=== PATIENT | male | born 1965 ===

== ENCOUNTER 2018-12-07 08:10 | Emergency (ER) | payer OTHER, MEDICAID, SELFPAY ==
[2018-12-07 08:30] VITALS: BP 143/64; PULSE 70; RESP 17; TEMP 36.3; O2SAT 100
--- NOTE | 2018-12-07 08:56 | PC.NURSE ---
Pt. assisted out of car, arrives to department but refuses to enter room until he uses the restroom to have a BM. Upon arrival to room RT does EKG and pt on monitor showing VS WNL and not ectopy on the monitor. Dialysis access in L arm leaves R arm for blood draw/IV. First attempt at IV - got a green and purple tube but no others before IV blew. No second IV attempted. This RN requests another to attempt. Pt. remains feeling weak but answering questions appropriately. Denies any pain just some minor tingling in extremeties consistent with his potassium concerns.
--- NOTE | 2018-12-07 09:09 | DI.RAD.S_ITS ---
PROCEDURE: XR CHEST 1V INDICATIONS: weakness chest pain TECHNIQUE: One view of the chest was acquired. COMPARISON: None. FINDINGS: Surgical changes and devices: Median sternotomy. Lungs and pleura: Lungs are clear. No pleural effusions or pneumothorax. Mediastinum: Mediastinal contours appear normal. Heart size is enlarged. Bones and chest wall: No suspicious bony lesions. Overlying soft tissues appear unremarkable. IMPRESSION: No acute process. Dictated by: Neno Magana M.D. on 12/07/2018 at 9:57 Approved by: Neno Magana M.D. on 12/07/2018 at 9:57
[2018-12-07 09:19] LABS: Add Manual Diff / Slide Review NO; Basophils Absolute Auto 0 /uL (0-100); Basophils Percent Auto 0.3 % (0-2); Eosinophils Absolute Auto 500 /uL (0-450); Eosinophils Percent Auto 4.2 % (2-4); Hematocrit 37.8 % (41-53); Hemoglobin 12.6 g/dL (13.5-17.5); Lymphocytes Absolute Auto 1600 /uL (1100-4500); Lymphocytes Percent Auto 12.5 % (25-40); Mean Corpuscular HGB Conc 33.4 % (30-36); Mean Corpuscular Hemoglobin 32.6 PG (26-34); Mean Corpuscular Volume 97.7 fL (80-100); Monocytes Absolute Auto 900 /uL (0-900); Monocytes Percent Auto 7.1 % (3-14); Neutrophils Absolute Auto 9900 /uL (1500-7000); Neutrophils Percent Auto 75.9 % (50-75); Platelet Count 295 X10^3/uL (150-400); Red Blood Cell Count 3.87 X10^6/uL (4.5-5.9); Red Cell Distribution Width 13.8 % (11.6-14.8)
[2018-12-07 09:25] LABS: Alanine Aminotransferase 22 IU/L (21-72); Albumin 5.2 g/dL (3.5-5.0); Albumin Globulin Ratio 1.4 (1.0-2.8); Alkaline Phosphatase 103 U/L (38-126); Aspartate Aminotransferase 38 IU/L (17-59); Bilirubin Total 0.8 mg/dL (0.2-1.3); Blood Urea Nitrogen 71 mg/dL (9-20); Calcium 8.9 mg/dL (8.4-10.2); Carbon Dioxide 25 mmol/L (22-32); Chloride 87 mmol/L (98-107); Creatine Kinase 380 U/L (55-170); Globulin 3.8 g/dL (1.7-4.1); Glucose 164 mg/dL (70-100); HEMOLYSIS < 15 (0-50); Lipase 751 U/L (23-300); Sodium 133 mmol/L (137-145)
[2018-12-07 09:36] LABS: Troponin I 0.028 ng/mL (0.01-0.034)
[2018-12-07 09:40] LABS: BUN Creatinine Ratio 5.7 (6-22); CKMB % Relative Index 1.1 % (1.5-5.0); Creatine Kinase MB 4.35 ng/mL (<2.37); Estimated Glomerular Filt Rate 4.2 mL/min (>60)
--- NOTE | 2018-12-07 09:44 | ED.GENADULT ---
HPI - General Adult General Chief complaint: Diabetic Problem Stated complaint: Hard time walking,Diabetic Time Seen by Provider: 12/07/18 09:09 Source: patient Mode of arrival: ambulatory Limitations: no limitations History of Present Illness HPI narrative: Patient is a 53-year-old male on dialysis presenting with overall weakness in all of his extremities. He has not missed dialysis in fact he went 2 days ago on Saturday when he was supposed to and then came to go [facility]. He admits to drinking beer last night but woke up this morning feeling generally weak and lightheaded all over. States that his legs and arms are heavy. He typically gets the symptoms when his potassium is high. He has no chest pain. but does have a history of CABG. She denies any shortness of breath. He overall was feeling well yesterday. Onset (ago): hour(s) Severity: moderate Related Data Home Medications Medication Instructions Recorded Confirmed ALPRAZOLAM 0 PO *UK DOSE/FREQUENCY #0 05/03/06 INSULIN GLARGINE 10ML (LANTUS) 0 SQ * UK DOSE/FREQUENCY #0 05/03/06 INSULIN HUMAN LISPRO 10ML (HUMALOG) 0 SQ * UK DOSE/FREQUENCY #0 05/03/06 Citalopram Hydrobromide 20 mg PO Q DAY #0 05/24/06 (Citalopram HBr) DICLOFENAC SODIUM (Diclofenac 75 mg PO BID #0 05/24/06 Sodium) GABAPENTIN (Neurontin) 300 mg PO #0 05/24/06 Trazodone Hydrochloride (Trazodone 50 mg PO Q HS #0 05/24/06 HCl) Allergies Allergy/AdvReac Type Severity Reaction Status Date / Time No Known Drug Allergies Allergy Verified 12/07/18 12:28 Review of Systems Review of Systems ROS Unobtainable: All systems reviewed & are unremarkable except as noted in HPI and below Constitutional Denies chills, Denies fever(s), Denies lethargy and Reports weakness Cardiovascular Denies chest pain, Denies irregular heart rhythm, Denies lightheadedness, Denies palpitations, Denies dyspnea, Denies dyspnea on exertion and Denies orthopnea Respiratory Denies cough, Denies dyspnea, Denies dyspnea on exertion and Denies wheezing Gastrointestinal Gastrointestinal: Denies abdominal pain, Denies change in bowel habits, Denies diarrhea, Denies nausea and Denies vomiting Musculoskeletal Reports as per HPI, Denies deformity and Denies tingling Integumentary/Breasts Denies pruritus, Denies erythema, Denies rash and Denies wounds Neurologic Denies lack of coordination, Denies tingling and Reports weakness Endocrine Denies palpitations Allergic/Immunologic Denies wheezing [facility] Medical History Coronary artery disease (Acute) End stage renal disease (Acute) Insulin dependent diabetes mellitus (Acute) Surgical History S/P CABG x 3 (Acute) Social History Smoking Status: Current some day smoker Social History Smoking Status: Current some day smoker Exam Initial Vital Signs Initial Vital Signs: Vital Signs Temperature 97.4 F L 12/07/18 08:30 Pulse Rate 70 12/07/18 08:30 Respiratory Rate 17 12/07/18 08:30 Blood Pressure 143/64 H 12/07/18 08:30 Pulse Oximetry 100 12/07/18 08:30 GENERAL: Alert week male appears older than stated age and in no acute distress. HEENT: Head atraumatic,EOMI, pupils reactive, face symmetric CARDIOVASCULAR: Regular rate and rhythm without murmurs, rubs or gallops. RESPIRATORY: Breath sounds equal bilaterally, no wheezes rales or rhonchi. ABDOMEN: Soft, nontender. Normoactive bowel sounds all 4 quadrants. No guarding or rebound. : No CVA tenderness EXTREMITIES: Normal range of motion, no clubbing or edema. Neurovascularly intact NEUROLOGICAL: Alert and oriented x4.Normal gait and speech. Cranial nerves II through XII grossly intact. strategic business development strength equal bilaterally able to push in full equally SKIN: Warm, dry, no laceration, no petechiae, no rashes or lesions. Course Orders Ordered: ED Orders 12/07/18 08:54 Complete Blood Count AUTO DIFF Stat Comprehensive Metabolic Panel Stat Lipase Stat Troponin & CK Cardiac Panel Stat 12/07/18 09:09 XR chest 1V Stat 12/07/18 09:13 Blood Culture Stat 12/07/18 11:53 Potassium Stat 12/07/18 14:08 Potassium Stat Discontinued Medications Dextrose (D50w) 25 gm IV NOW ONE Stop: 12/07/18 09:47 Last Admin: 12/07/18 10:16 Dose: 25 gm Furosemide (Lasix) 40 mg IV NOW ONE Stop: 12/07/18 09:45 Last Admin: 12/07/18 10:16 Dose: 40 mg Calcium Gluconate 4.65 meq/ (Sodium Chloride) 60 mls @ 120 mls/hr IV NOW ONE Stop: 12/07/18 09:45 Last Infusion: 12/07/18 11:04 Dose: 120 mls/hr Admin: 12/07/18 10:24 Dose: 120 mls/hr Sodium Chloride (Normal Saline 0.9%) 500 mls @ 1,000 mls/hr IV BOLUS ONE Stop: 12/07/18 12:12 Last Infusion: 12/07/18 12:54 Dose: 0 mls/hr Admin: 12/07/18 12:26 Dose: 1,000 mls/hr Dextrose (D10w) 250 mls @ 25 mls/hr IV CONT YOU Last Infusion: 12/07/18 15:00 Dose: 0 mls/hr Infusion: 12/07/18 14:59 Dose: 25 mls/hr Admin: 12/07/18 14:48 Dose: 25 mls/hr Insulin Human Regular (Humulin R) 10 unit IV NOW ONE Stop: 12/07/18 09:45 Last Admin: 12/07/18 10:13 Dose: 10 unit Insulin Human Regular (Humulin R) 10 unit IV NOW ONE Stop: 12/07/18 14:37 Last Admin: 12/07/18 14:44 Dose: 10 unit Sodium Polystyrene Sulfonate (Kayexalate) 30 gm PO NOW ONE Stop: 12/07/18 09:45 Last Admin: 12/07/18 10:21 Dose: 30 gm Vital Signs - 8 hr 12/07/18 11:00 12/07/18 12:30 12/07/18 13:00 Pulse Rate 79 96 H 88 Respiratory Rate 17 18 27 H Blood Pressure [Right Arm] 119/74 150/74 H 148/61 H Pulse Oximetry 100 100 100 12/07/18 14:19 Pulse Rate 87 Respiratory Rate 17 Blood Pressure [Right Arm] 136/66 Pulse Oximetry 100 Medical Decision Making Lab Data Lab results reviewed: Yes I reviewed the patient's lab results. Result diagrams: 12/07/18 08:54 04/28/19 14:08 Lab Results 12/07/18 12/07/18 12/07/18 Range/Units 08:54 08:54 11:53 WBC 13.0 H (4.5-11.0) X10^3/uL RBC 3.87 L (4.5-5.9) X10^6/uL Hgb 12.6 L (13.5-17.5) g/dL Hct 37.8 L (41-53) % MCV 97.7 (80-100) fL MCH 32.6 (26-34) PG MCHC 33.4 (30-36) % RDW 13.8 (11.6-14.8) % Plt Count 295 (150-400) X10^3/uL Neut % (Auto) 75.9 H (50-75) % Lymph % (Auto) 12.5 L (25-40) % [place] % (Auto) 7.1 (3-14) % Eos % (Auto) 4.2 H (2-4) % Baso % (Auto) 0.3 (0-2) % Neut # (Auto) 9900 H (7705-3270) /uL Lymph # (Auto) 1600 (5046-2899) /uL [place] # (Auto) 900 (0-900) /uL Eos # (Auto) 500 H (0-450) /uL Baso # (Auto) 0 (0-100) /uL Sodium 133 L (137-145) mmol/L Potassium 7.4 H* 5.3 H D (3.4-5.1) mmol/L Chloride 87 L (98-107) mmol/L Carbon Dioxide 25 (22-32) mmol/L BUN 71 H (9-20) mg/dL Creatinine 12.50 H* (0.66-1.25) mg/dL Estimated GFR 4.2 L (>60) mL/min BUN/Creatinine Ratio 5.7 L (6-22) Glucose 164 H (70-100) mg/dL Calcium 8.9 (8.4-10.2) mg/dL Total Bilirubin 0.8 (0.2-1.3) mg/dL AST 38 (17-59) IU/L ALT 22 (21-72) IU/L Alkaline Phosphatase 103 (38-126) U/L Total Creatine Kinase 380 H (55-170) U/L CK-MB (CK-2) 4.35 H (<2.37) ng/mL CK-MB (CK-2) Rel Index 1.1 L (1.5-5.0) % Troponin I 0.028 (0.01-0.034) ng/mL Total Protein 9.0 H (6.3-8.2) g/dL Albumin 5.2 H (3.5-5.0) g/dL Globulin 3.8 (1.7-4.1) g/dL Albumin/Globulin Ratio 1.4 (1.0-2.8) Lipase 751 H (23-300) U/L 12/07/18 Range/Units 14:08 WBC (4.5-11.0) X10^3/uL RBC (4.5-5.9) X10^6/uL Hgb (13.5-17.5) g/dL Hct (41-53) % MCV (80-100) fL MCH (26-34) PG MCHC (30-36) % RDW (11.6-14.8) % Plt Count (150-400) X10^3/uL Neut % (Auto) (50-75) % Lymph % (Auto) (25-40) % [place] % (Auto) (3-14) % Eos % (Auto) (2-4) % Baso % (Auto) (0-2) % Neut # (Auto) (5316-4248) /uL Lymph # (Auto) (9275-7024) /uL [place] # (Auto) (0-900) /uL Eos # (Auto) (0-450) /uL Baso # (Auto) (0-100) /uL Sodium (137-145) mmol/L Potassium 6.1 H (3.4-5.1) mmol/L Chloride (98-107) mmol/L Carbon Dioxide (22-32) mmol/L BUN (9-20) mg/dL Creatinine (0.66-1.25) mg/dL Estimated GFR (>60) mL/min BUN/Creatinine Ratio (6-22) Glucose (70-100) mg/dL Calcium (8.4-10.2) mg/dL Total Bilirubin (0.2-1.3) mg/dL AST (17-59) IU/L ALT (21-72) IU/L Alkaline Phosphatase (38-126) U/L Total Creatine Kinase (55-170) U/L CK-MB (CK-2) (<2.37) ng/mL CK-MB (CK-2) Rel Index (1.5-5.0) % Troponin I (0.01-0.034) ng/mL Total Protein (6.3-8.2) g/dL Albumin (3.5-5.0) g/dL Globulin (1.7-4.1) g/dL Albumin/Globulin Ratio (1.0-2.8) Lipase (23-300) U/L Point of Care Testing Glucose POC 255 Point of care testing: Point of Care Testing Glucose POC 255 Imaging Data Chest x-ray: Radiologist's impression: PROCEDURE: XR CHEST 1V INDICATIONS: weakness chest pain TECHNIQUE: One view of the chest was acquired. COMPARISON: None. FINDINGS: Surgical changes and devices: Median sternotomy. Lungs and pleura: Lungs are clear. No pleural effusions or pneumothorax. Mediastinum: Mediastinal contours appear normal. Heart size is enlarged. Bones and chest wall: No suspicious bony lesions. Overlying soft tissues appear unremarkable. IMPRESSION: No acute process. Dictated by: Neno Magana M.D. on 12/07/2018 at 9:57 ECG Data Attestation: I personally reviewed and interpreted this ECG as follows: Prior ECG tracings: not available for review Interpretation: Normal sinus rhythm rate 64 P are interval 197 no peaked T-waves no ST changes MDM Narrative Medical decision making narrative: Patient found to be significantly hyperkalemic. He was given insulin, dextrose, Lasix and Kayexalate along with calcium gluconate. He had multiple bowel movements repeat potassium 5.3. I spoken with [facility] physician who agrees with transport back to [place]. His glucose actually dropped into the 50s after the IV insulin. He was able to eat repeat remains stable. he still does not feel right. He overall feels weak and tired not feeling back to his normal. [facility] has found and accepting hospitalist and spoken to the time clerk. They request 1 more repeat potassium prior to transport. The patient agreeable to be transported. The patient is 3rd potassium was rising again at 6.1. He was given 10 units of insulin IV and placed on 10% dextrose drip for transport. Critical Care Time Critical Care Time: Yes Total Critical Care Time: 60 Attestation: The high probability of a clinically significant, sudden or life threatening deterioration of the [cardiovascular] system(s) required my full and direct attention, intervention and personal management. The aggregate critical care time was 60 minutes. This time is in addition to time spent performing reported procedures but includes the following: [x] Data Review and interpretation [x] Patient assessment and monitoring of vital signs [x] Documentation [x] Medication orders and management Discharge Plan Departure Patient Disposition: [facility] Clinical Impression: Acute hyperkalemia Discharge Date/Time: 12/07/18 15:00 Interventions: ED Discharge Assessment Last Done: 12/07/18 16:58 Prescriptions: No Action ALPRAZOLAM PO *UK DOSE/FREQUENCY Qty: 0 RF: 0 INSULIN GLARGINE 10ML (LANTUS) SQ * UK DOSE/FREQUENCY Qty: 0 RF: 0 INSULIN HUMAN LISPRO 10ML (HUMALOG) SQ * UK DOSE/FREQUENCY Qty: 0 RF: 0 DICLOFENAC SODIUM (Diclofenac Sodium) 75 mg PO BID Qty: 0 RF: 0 Citalopram Hydrobromide (Citalopram HBr) 20 mg PO Q DAY Qty: 0 RF: 0 GABAPENTIN (Neurontin) 300 mg PO Qty: 0 RF: 0 Trazodone Hydrochloride (Trazodone HCl) 50 mg PO Q HS Qty: 0 RF: 0
[2018-12-07 09:45] LABS: Potassium 7.4 mmol/L (3.4-5.1)
[2018-12-07] MEDS: INSULIN REGULAR 100 UNIT/ML 3 ML VIAL 10 UNIT IV ×2 (10:13→14:44)
[2018-12-07] MEDS: DEXTROSE 50 % IN WATER 25 GM/50 ML SYRINGE IV (10:16)
[2018-12-07] MEDS: FUROSEMIDE 40 MG/4 ML VIAL IV (10:16)
[2018-12-07] MEDS: SODIUM POLYSTYRENE SULFON/SORB 15 GM/60 ML CUP 30 GM PO (10:21)
[2018-12-07] MEDS: CALCIUM GLUCONATE 4.65 MEQ in SODIUM CHLORIDE 0.9% 50 ML 120 ML IV (10:24)
[2018-12-07 11:00] VITALS: BP 119/74; PULSE 79; RESP 17; O2SAT 100
[2018-12-07 12:07] LABS: HEMOLYSIS 20 (0-50); Potassium 5.3 mmol/L (3.4-5.1)
[2018-12-07] MEDS: SODIUM CHLORIDE 0.9% 500 ML 1000 ML IV (12:26)
[2018-12-07 12:30] VITALS: BP 150/74; PULSE 96; RESP 18; O2SAT 100
[2018-12-07 13:00] VITALS: BP 148/61; PULSE 88; RESP 27; O2SAT 100
[2018-12-07 14:19] VITALS: BP 136/66; PULSE 87; RESP 17; O2SAT 100
[2018-12-07 14:21] LABS: HEMOLYSIS < 15 (0-50); Potassium 6.1 mmol/L (3.4-5.1)
[2018-12-07] MEDS: DEXTROSE 10 % IN WATER 250 ML 25 ML IV (14:48)
--- NOTE | 2018-12-07 15:00 | PC.NURSE ---
250cc bag of D10 with pt on transport to [place]
== END 2018-12-07 15:00 | disposition short-term general hospital (02) ==
PROVIDERS: Emergency Provider Emergency Medicine
DX: E87.5 Hyperkalemia (principal); R53.1 Weakness; R42 Dizziness and giddiness; Z95.1 Presence of aortocoronary bypass graft; N18.6 End stage renal disease; Z99.2 Dependence on renal dialysis; E11.9 Type 2 diabetes mellitus without complications; Z79.4 Long term (current) use of insulin
CPT/HCPCS: 36415; 36591; 71045; 80053; 82550; 82553; 82962; 83690; 84132; 84484; 85025; 87040; 93005; 96361; 96374; 96375; 96376; 99285; J0610; J1940